=== PATIENT | male | born 1965 | race Caucasian/White ===

== ENCOUNTER 2020-10-26 23:57 | Emergency (ER) | payer OTHER ==
[2020-10-27 00:53] LABS: ALBUMIN 4.1 g/dL (3.5-5.0); BASO # 0.07 (0.02-0.10); EOS # 0.15 (0.04-0.40); EOS % 2.3 % (0.0-4.0); HEMATOCRIT 40.5 % (42.0-52.0); HEMOGLOBIN 14.2 g/dL (13.5-18.0); LYMPH# 1.56 (1.50-4.00); MEAN CELL VOLUME 84 fl (78-100); MEAN CORPUSCULAR HEMOGLOBIN 30 pg (27-31); MEAN CORPUSCULAR HGB CONC 35 g/dL (33-37); MEAN PLATELET VOLUME 8.6 fl (7.4-10.4); MONO # 0.61 (0.20-0.80); PLATELET COUNT 188 K/mm3 (130-400); RED BLOOD COUNT 4.81 M/mm3 (4.20-5.60); RED CELL DISTRIBUTION WIDTH 11.7 % (11.5-14.5); WHITE BLOOD COUNT 6.4 K/mm3 (4.8-10.8)
[2020-10-27 00:55] LABS: CALCIUM 9.3 mg/dL (8.3-10.5)
[2020-10-27 00:56] LABS: TOTAL PROTEIN 6.7 g/dL (6.4-8.3)
[2020-10-27 00:58] LABS: TOTAL BILIRUBIN 0.5 mg/dL (0.2-1.2)
[2020-10-27 01:02] LABS: PH-URINE 5.5 (5.0 - 8.0); URINE APPEARANCE CLOUDY; URINE BILIRUBIN NEGATIVE (NEGATIVE); URINE COLOR LT YELLOW; URINE GLUCOSE NEGATIVE (NEGATIVE); URINE KETONE NEGATIVE (NEGATIVE); URINE PROTEIN(semi-quant) NEGATIVE (NEGATIVE); URINE UROBILINOGEN NORMAL (NORMAL)
[2020-10-27 01:03] LABS: URINE BLOOD TRACE (NEGATIVE); URINE LEUKOCYTE ESTERASE 2+ (NEGATIVE); URINE MUCUS PRESENT (NOT PRESENT); URINE NITRATE NEGATIVE (NEGATIVE); URINE WBC >50 /hpf (0-3)
[2020-10-27] MEDS ORDERED: CIPRO500 M1 PO (02:59)
[2020-10-27 03:08] VITALS: BP 139/90
== END 2020-10-27 03:08 | disposition home or self-care (01) ==
LOC: ED 23:57
PROVIDERS: Nurse Practitioner
DX: N12 Tubulo-interstitial nephritis, not specified as acute or chronic (principal)
CPT/HCPCS: J0696; J2405; J3010; J7030